=== PATIENT | female | born 1945 | race Caucasian/White ===

== ENCOUNTER → 2016-11-08 | Outpatient (CLI) | payer MEDICARE, OTHER | LOC: KOH-I 13:29 | DX: M81.0 Age-related osteoporosis without current pathological fracture (principal) | CPT/HCPCS: 77080 ==

== ENCOUNTER → 2020-11-15 | Outpatient (CLI) | payer MEDICARE, OTHER ==
[~2020-11-15] MED LIST: ASPIRIN EC81 MG PO; ATORVASTATIN CA20 MG PO; BRILINTA 90 MG90 MG PO; CARTIA XT180 MG PO; LASIX20 MG PO; LIORESAL TAB 1010 MG PO; LOPRESSOR 25 MG25 MG PO; LOSARTAN-HCTZ1 EAC1 PO; NITROSTAT0.4 MG SL; NORCO 10-325 T1 EACH PO; ROBAXIN500 MG PO; ZANTAC150 MG PO; ZESTRIL2.5 MG PO
== END ==
LOC: KOH-I 10:34
DX: M54.5 Low back pain (principal); M19.09 Primary osteoarthritis, other specified site
CPT/HCPCS: 72100; 72170

== ENCOUNTER → 2020-11-25 | Outpatient (CLI) | payer MEDICARE, OTHER | LOC: KOH-I 11-18 16:00 | DX: M79.661 Pain in right lower leg (principal); M79.662 Pain in left lower leg | CPT/HCPCS: 93970 ==

== ENCOUNTER → 2021-06-29 | Outpatient (CLI) | payer MEDICARE, OTHER | LOC: KOH-I 10:00 | DX: M25.551 Pain in right hip (principal); M16.11 Unilateral primary osteoarthritis, right hip; M47.816 Spondylosis without myelopathy or radiculopathy, lumbar region | CPT/HCPCS: 72100; 73502 ==

== ENCOUNTER 2021-10-10 02:29 | Emergency (ER) | payer MEDICARE, OTHER ==
[~2021-10-10 02:29] MED LIST changes: +IBUPROFEN800 MG PO; +LIDOCAINE PAIN1 EACH TP
[2021-10-10 04:05] LABS: HEMOGLOBIN 11.4 gm/dl (12.3-15.3); RED BLOOD COUNT 3.82 M/UL (4.00-5.10); WHITE BLOOD COUNT 9.3 K/UL (4.5-11.0)
[2021-10-10 04:30] LABS: BUN/CREATININE RATIO 22 (0-10)
[2021-10-10] MEDS ORDERED: CLEOCIN HCL150 MG PO (07:09)
== END 2021-10-10 12:30 | disposition home or self-care (01) ==
LOC: ER1 02:29
PROVIDERS: Student in an Organized Health Care Education/Training Program
DX: L03.116 Cellulitis of left lower limb (principal); L03.115 Cellulitis of right lower limb; M25.552 Pain in left hip; M25.551 Pain in right hip; I11.9 Hypertensive heart disease without heart failure; W01.0XXA Fall on same level from slipping, tripping and stumbling without subsequent striking against object, initial encounter; Y92.009 Unspecified place in unspecified non-institutional (private) residence as the place of occurrence of the external cause
CPT/HCPCS: 71045; 72192; 73522; 80048; 82550; 82553; 83880; 84484; 85025; 99284

== ENCOUNTER → 2021-10-26 | Outpatient (CLI) | payer MEDICARE, OTHER ==
[~2021-10-26] MED LIST changes: +CLEOCIN HCL150 MG PO
== END ==
LOC: ECHO 10-25 09:15
DX: R01.1 Cardiac murmur, unspecified (principal); I35.0 Nonrheumatic aortic (valve) stenosis
CPT/HCPCS: ECHO; 93306

== ENCOUNTER → 2021-12-08 | Outpatient (CLI) | payer MEDICARE, OTHER | LOC: MRI 14:36 | DX: M54.50 Low back pain, unspecified (principal); M47.816 Spondylosis without myelopathy or radiculopathy, lumbar region; M48.061 Spinal stenosis, lumbar region without neurogenic claudication | CPT/HCPCS: 36415; 72148; 82565; 84520 ==